=== PATIENT | male | born 1985 | race Caucasian/White ===

== ENCOUNTER 2019-01-11 23:54 | Emergency (ER) | payer BC ==
[~2019-01-11] VITALS: Ht 172.7 cm; Wt 106.1 kg
--- NOTE | 2019-01-12 00:25 | PHYS DOC ---
Past Medical History Past Medical History: GERD Additional Past Surgical Histo: CYST REMOVAL RIGHT SHOULDER, VASECTOMY Alcohol Use: Occasionally Drug Use: None Adult General Chief Complaint Chief Complaint: ABDOMINAL PAIN HPI HPI 33-year-old otherwise relatively healthy male presents with approximately a 4 hour history of severe abdominal discomfort. He states the pain is just above his bellybutton. He denies using regular ibuprofen and he states he only drinks alcohol rarely. He denies any melena or hematemesis. He states initially the pain waxed and waned but now is more constant and severe in nature. Nothing alleviates his symptoms] Review of Systems Review of Systems Constitutional: Denies fever or chills [] Eyes: Denies change in visual acuity, redness, or eye pain [] HENT: Denies nasal congestion or sore throat [] Respiratory: Denies cough or shortness of breath [] Cardiovascular: No additional information not addressed in HPI [] GI: Per history of present illness[] : Denies dysuria or hematuria [] Musculoskeletal: Denies back pain or joint pain [] Integument: Denies rash or skin lesions [] Neurologic: Denies headache, focal weakness or sensory changes [] Endocrine: Denies polyuria or polydipsia [] All other systems were reviewed and found to be within normal limits, except as documented in this note. Current Medications Current Medications Current Medications Medications (Trade) Dose Ordered Sig/Vincent Start Time Stop Time Status Last Admin Dose Admin Fentanyl Citrate (Fentanyl 2ml Vial) 50 mcg 1X ONCE 01/12/19 00:45 01/12/19 00:46 DC 01/12/19 00:39 50 MCG Info (CONTRAST GIVEN -- Rx MONITORING) 1 each PRN DAILY PRN 01/12/19 01:30 01/14/19 01:29 Iohexol (Omnipaque 300 Mg/ml) 75 ml 1X ONCE 01/12/19 01:15 01/12/19 01:16 DC 01/12/19 01:11 75 ML Ondansetron HCl (Zofran) 4 mg 1X ONCE 01/12/19 00:45 01/12/19 00:46 DC 01/12/19 00:36 4 MG Sodium Chloride 1,000 ml @ 1,000 mls/hr 1X ONCE 01/12/19 00:45 01/12/19 01:44 DC 01/12/19 00:39 1,000 MLS/HR Allergies Allergies Allergies Coded Allergies Type Severity Reaction Last Updated Verified No Known Drug Allergies 01/12/19 No Physical Exam Physical Exam Constitutional: Well developed, well nourished, mild to moderate distress, non- toxic appearance. [] HENT: Normocephalic, atraumatic, bilateral external ears normal, oropharynx moist, no oral exudates, nose normal. [] Eyes: PERRLA, EOMI, conjunctiva normal, no discharge. [] Neck: Normal range of motion, no tenderness, supple, no stridor. [] Cardiovascular:Heart rate regular rhythm, no murmur [] Lungs & Thorax: Bilateral breath sounds clear to auscultation [] Abdomen: Bowel sounds 4 diffusely tender to palp no rebound or guarding[] Skin: Warm, dry, no erythema, no rash. [] Back: No tenderness, no CVA tenderness. [] Extremities: No tenderness, no cyanosis, no clubbing, ROM intact, no edema. [] Neurologic: Alert and oriented X 3, normal motor function, normal sensory function, no focal deficits noted. [] Psychologic: Affect normal, judgement normal, mood normal. [] Current Patient Data Vital Signs Vital Signs Date Time Temp Pulse Resp B/P (MAP) Pulse Ox O2 Delivery O2 Flow Rate FiO2 01/12/19 00:39 16 96 Room Air 01/12/19 00:04 98.1 129/89 (102) 98.1 Lab Values Laboratory Tests Test 01/12/19 00:23 White Blood Count 13.4 x10^3/uL (4.0-11.0) H Red Blood Count 5.50 x10^6/uL (4.30-5.70) Hemoglobin 16.1 g/dL (13.0-17.5) Hematocrit 48.0 % (39.0-53.0) Mean Corpuscular Volume 87 fL (79-100) Mean Corpuscular Hemoglobin 29 pg (25-35) Mean Corpuscular Hemoglobin Concent 34 g/dL (31-37) Red Cell Distribution Width 13.1 % (11.5-14.5) Platelet Count 210 x10^3/uL (140-400) Neutrophils (%) (Auto) 68 % (31-73) Lymphocytes (%) (Auto) 23 % (24-48) L Monocytes (%) (Auto) 7 % (0-9) Eosinophils (%) (Auto) 2 % (0-3) Basophils (%) (Auto) 1 % (0-3) Neutrophils # (Auto) 9.1 x10^3uL (1.8-7.7) H Lymphocytes # (Auto) 3.0 x10^3/uL (1.0-4.8) Monocytes # (Auto) 0.9 x10^3/uL (0.0-1.1) Eosinophils # (Auto) 0.3 x10^3/uL (0.0-0.7) Basophils # (Auto) 0.1 x10^3/uL (0.0-0.2) Sodium Level 139 mmol/L (136-145) Potassium Level 4.2 mmol/L (3.5-5.1) Chloride Level 102 mmol/L (98-107) Carbon Dioxide Level 24 mmol/L (21-32) Anion Gap 13 (6-14) Blood Urea Nitrogen 16 mg/dL (8-26) Creatinine 1.0 mg/dL (0.7-1.3) Estimated GFR (Cockcroft-Gault) 87.2 BUN/Creatinine Ratio 16 (6-20) Glucose Level 122 mg/dL (70-99) H Calcium Level 8.8 mg/dL (8.5-10.1) Total Bilirubin 0.5 mg/dL (0.2-1.0) Aspartate Amino Transferase (AST) 24 U/L (15-37) Alanine Aminotransferase (ALT) 49 U/L (16-63) Alkaline Phosphatase 83 U/L (46-116) Total Protein 7.7 g/dL (6.4-8.2) Albumin 4.1 g/dL (3.4-5.0) Albumin/Globulin Ratio 1.1 (1.0-1.7) Lipase 121 U/L (73-393) Laboratory Tests 01/12/19 00:23 Laboratory Tests 01/12/19 00:23 EKG EKG [] Radiology/Procedures Radiology/Procedures [] Impressions: CLINICAL HISTORY: Abdominal pain COMPARISON: none TECHNIQUE: Helical CT of the abdomen and pelvis was performed following the administration of intravenous contrast. Axial, coronal and sagittal reformatted images were generated. PQRS compliance statement - One or more of the following individualized dose reduction techniques were utilized for this study: 1. Automated exposure control 2. Adjustment of the mA and/or kV according to patient size 3. Use of iterative reconstruction technique FINDINGS: Lower chest: Linear opacities in the lower lobes and lingula likely scarring/atelectasis. Small hiatal hernia. Abdomen and Pelvis: Diffuse hepatic hypoattenuation likely hepatic steatosis. Gallbladder is normal. No biliary ductal dilatation. Spleen is unremarkable. Adrenal glands are normal. Pancreas is unremarkable. Symmetric nephrograms. No focal renal lesion. No hydronephrosis. No hydroureter. Bladder is unremarkable. Appendix is normal. Moderate colonic stool content is seen. No small or large bowel dilatation to suggest bowel obstruction. Bladder is unremarkable. Small fat-containing periumbilical hernia is seen. Focus of fat infiltration within the left pelvis measuring 2 cm adjacent to the sigmoid colon, possibly epiploic appendagitis. No abdominal or pelvic ascites. Bones: Visualized osseous structures are grossly unremarkable. IMPRESSION: 1. Fat infiltration within the left pelvis adjacent to the sigmoid colon, possibly epiploic appendagitis 2. No evidence of bowel obstruction. 3. No abdominal or pelvic ascites. No abdominal pelvic lymphadenopathy. Course & Med Decision Making Course & Med Decision Making Pertinent Labs and Imaging studies reviewed. (See chart for details) [ED course: Evaluation reveals a 33-year-old male with abdominal pain. CT scan shows possible epiploic appenditis. Laboratory studies were all unrevealing. At bedtime feeling much better and safe for discharge home at this time.] Dragon Disclaimer Dragon Disclaimer This electronic medical record was generated, in whole or in part, using a voice recognition dictation system. Departure Departure Impression: Primary Impression: Abdominal pain Disposition: 01 HOME, SELF-CARE Condition: STABLE Referrals: NO PCP (PCP) Patient Instructions: Abdominal Pain Additional Instructions: Return to the emergency department with any new or concerning symptoms Scripts Ranitidine Hcl (ZANTAC) 300 Mg Tablet 1 TAB PO QHS for reflux, #90 TAB 3 Refills Prov: KEAGAN FLORES DO 01/12/19 Problem Qualifiers Primary Impression: Abdominal pain Abdominal location: periumbilical Qualified Codes: R10.33 - Periumbilical pain KEAGAN FLORES DO Jan 12, 2019 00:25
[2019-01-12 00:34] LABS: BASO # 0.1 x10^3/uL (0.0-0.2); BASO % 1 % (0-3); EOS # 0.3 x10^3/uL (0.0-0.7); EOS % 2 % (0-3); HEMOGLOBIN 16.1 g/dL (13.0-17.5); LYMPH % 23 % (24-48); MEAN CORPUSCULAR HEMOGLOBIN 29 pg (25-35); MEAN CORPUSCULAR HGB CONC 34 g/dL (31-37); MEAN CORPUSCULAR VOLUME 87 fL (79-100); MONO # 0.9 x10^3/uL (0.0-1.1); MONO % 7 % (0-9); NEUT # 9.1 x10^3uL (1.8-7.7); NEUT % 68 % (31-73); PLATELET COUNT 210 x10^3/uL (140-400); RED CELL DISTRIBUTION WIDTH 13.1 % (11.5-14.5); WHITE BLOOD COUNT 13.4 x10^3/uL (4.0-11.0)
[2019-01-12] MEDS ORDERED: ONDANSETRON PF 4 MG/2 ML VIAL. IV ONE (00:45)
[2019-01-12] MEDS ORDERED: IV NORMAL SALINE 1000ML BAG 1,000 ML IV ONE (00:45)
[2019-01-12] MEDS ORDERED: fentaNYL PF VIAL 100 MCG/2 ML VIAL IV ONE (00:45)
[2019-01-12 00:52] LABS: CALCIUM 8.8 mg/dL (8.5-10.1); GFR 87.2; POTASSIUM 4.2 mmol/L (3.5-5.1)
[2019-01-12 00:57] LABS: ALBUMIN 4.1 g/dL (3.4-5.0); ALBUMIN/GLOBULIN RATIO 1.1 (1.0-1.7); TOTAL BILIRUBIN 0.5 mg/dL (0.2-1.0); TOTAL PROTEIN 7.7 g/dL (6.4-8.2)
[2019-01-12] MEDS ORDERED: IOHEXOL 300 MG/ML 100ML VIAL. IV ONE (01:15)
[2019-01-12] MEDS ORDERED: CONTRAST GIVEN. MC PRN (01:30)
[2019-01-12 01:53] LABS: BILIRUBIN,URINE NEGATIVE (NEG); CLARITY,URINE CLEAR; COLOR,URINE YELLOW; NITRITE,URINE NEGATIVE (NEG); PH,URINE 5.5; PROTEIN,URINE NEGATIVE (NEG-TRACE); UROBILINOGEN,URINE 0.2 mg/dL (0.2 mg/dL)
--- NOTE | 2019-01-12 01:54 | RAD ---
EXAM: CT Abdomen and Pelvis with IV contrast CLINICAL HISTORY: Abdominal pain COMPARISON: none TECHNIQUE: Helical CT of the abdomen and pelvis was performed following the administration of intravenous contrast. Axial, coronal and sagittal reformatted images were generated. PQRS compliance statement - One or more of the following individualized dose reduction techniques were utilized for this study: 1. Automated exposure control 2. Adjustment of the mA and/or kV according to patient size 3. Use of iterative reconstruction technique FINDINGS: Lower chest: Linear opacities in the lower lobes and lingula likely scarring/atelectasis. Small hiatal hernia. Abdomen and Pelvis: Diffuse hepatic hypoattenuation likely hepatic steatosis. Gallbladder is normal. No biliary ductal dilatation. Spleen is unremarkable. Adrenal glands are normal. Pancreas is unremarkable. Symmetric nephrograms. No focal renal lesion. No hydronephrosis. No hydroureter. Bladder is unremarkable. Appendix is normal. Moderate colonic stool content is seen. No small or large bowel dilatation to suggest bowel obstruction. Bladder is unremarkable. Small fat-containing periumbilical hernia is seen. Focus of fat infiltration within the left pelvis measuring 2 cm adjacent to the sigmoid colon, possibly epiploic appendagitis. No abdominal or pelvic ascites. Bones: Visualized osseous structures are grossly unremarkable. IMPRESSION: 1. Fat infiltration within the left pelvis adjacent to the sigmoid colon, possibly epiploic appendagitis 2. No evidence of bowel obstruction. 3. No abdominal or pelvic ascites. No abdominal pelvic lymphadenopathy. Electronically signed by: Azeem Melendrez MD (01/12/2019 1:51 AM) [id number]
[2019-01-12] MEDS ORDERED: RANI300T3 PO (02:01)
[2019-01-12 02:30] VITALS: BP 113/64
[2019-01-12 02:30] LABS: BACTERIA,URINE 0 /HPF (0-FEW); RBC,URINE 0 /HPF (0-2); SQUAMOUS EPITHELIAL CELL,UR OCC /LPF; WBC,URINE OCC /HPF (0-4)
== END 2019-01-12 02:34 | disposition home or self-care (01) ==
LOC: ER 23:54
DX: R10.84 Generalized abdominal pain (principal); K42.9 Umbilical hernia without obstruction or gangrene; K21.9 Gastro-esophageal reflux disease without esophagitis; Z98.52 Vasectomy status
CPT/HCPCS: 36415; 74177; 80053; 81001; 83690; 85025; 96374; 96375; 99284; J2405; J3010; J7030; Q9967

== ENCOUNTER → 2021-07-29 | Outpatient (CLI) | payer BC ==
[~2021-07-29] MED LIST: RANI300T3 PO
--- NOTE | 2021-07-29 13:51 | KCIC ---
EXAMINATION: MRI LEFT KNEE WITHOUT IV CONTRAST CLINICAL HISTORY: Left knee gave out and pt fell down the stairs. Medial pain, one month. Concern for MCL sprain TECHNIQUE: Multiplanar multisequential images obtained through the knee without intravenous contrast. COMPARISON: Left knee radiographs 07/12/2021 FINDINGS: MENISCI: Medial Meniscus: Intact. Lateral Meniscus: Intact. LIGAMENTS: ACL: Intact PCL: Intact MCL: Intact LCL Complex: Intact CARTILAGE: Medial Femoral Condyle: Normal Medial Tibial Plateau: Normal Lateral Femoral Condyle: Normal Lateral Tibial Plateau: Normal Patella: Normal Trochlea: Normal TENDONS: Distal quadriceps and patellar tendons intact. Popliteus tendon intact. BONES AND MARROW: No evidence of acute fracture or suspicious marrow replacing process. MUSCLES: Muscle bulk and signal intensity within normal limits. JOINT FLUID AND SYNOVIUM: No joint effusion. No synovitis. No Butterfield's cyst. IMPRESSION: Unremarkable exam left knee. No meniscus tear or acute ligamentous injury. Electronically signed by: Zenon Roy DO (07/29/2021 1:49 PM) [id number]
== END ==
LOC: KCIC MRI 10:36
PROVIDERS: ATTEND Physician Assistant
DX: S83.412A Sprain of medial collateral ligament of left knee, initial encounter (principal); M25.362 Other instability, left knee; X58.XXXA Exposure to other specified factors, initial encounter; Y93.89 Activity, other specified; Y92.89 Other specified places as the place of occurrence of the external cause; Y99.8 Other external cause status
CPT/HCPCS: 73721